=== PATIENT | female | born 2000 | race Two or more races ===

== ENCOUNTER 2022-03-17 14:04 | Emergency (ER) | payer MEDICAID ==
[~2022-03-17] VITALS: Ht 160 cm; Wt 59.0 kg
[2022-03-17] MEDS ORDERED: PREN-170 PO (14:21)
[2022-03-17] MEDS ORDERED: ONDANSETRON HCL 4MG/2ML INJ IV STA (15:37)
[2022-03-17] MEDS ORDERED: SODIUM CHLORIDE 0.9% 1,000 ML IV ONE (15:45)
[2022-03-17 16:25] LABS: BASOPHILS % 0.6 % (0.0-2.0); EOSINOPHILS % 1.2 % (0.0-5.0); HEMATOCRIT. 41.4 % (36.0-48.0); HEMOGLOBIN. 14.1 g/dL (12.0-16.0); LYMPHOCYTES % 21.5 % (20.0-50.0); MEAN CORPUSCULAR HEMOGLOBIN 29.3 pg (28.0-32.0); MEAN CORPUSCULAR VOLUME 85.9 fL (81.0-99.0); MEAN PLATELET VOLUME 7.1 fl (7.4-10.4); NEUTROPHILS % 71.7 % (40.0-76.0); PLATELET 288 x1000/uL (130-400); RED BLOOD CELL COUNT 4.82 mill/uL (4.2-5.4); RED CELL DISTRIBUTION WIDTH 13.1 % (11.6-14.6)
[2022-03-17 16:30] LABS: CHLORIDE 99 mEq/L (98-107)
[2022-03-17 16:37] LABS: BETA HYDROXYBUTYRATE 0.8 mMol/L (0.0-0.3)
[2022-03-17 17:44] LABS: CLARITY URINE CLOUDY (CLEAR); COLOR URINE DARK YELLOW (YELLOW); KETONES URINE 4+ (NEGATIVE); LEUKOCYTE ESTERASE URINE NEGATIVE (NEGATIVE); NITRITE URINE NEGATIVE (NEGATIVE); OCCULT BLOOD URINE NEGATIVE (NEGATIVE); PROTEIN URINE 1+ (NEGATIVE); SPECIFIC GRAVITY URINE 1.033 (1.005-1.030)
[2022-03-17] MEDS ORDERED: ONDANSETRON HCL 4MG/2ML INJ IV NR (17:45)
[2022-03-17] MEDS ORDERED: ONDA4TAB50 MT (19:00)
[2022-03-17] MEDS ORDERED: PYRI25TA4 MT (19:00)
[2022-03-17 19:13] VITALS: BP 116/76
== END 2022-03-17 19:16 | disposition home or self-care (01) ==
LOC: ER 14:17
DX: O21.8 Other vomiting complicating pregnancy (principal); Z3A.10 10 weeks gestation of pregnancy
CPT/HCPCS: 36415; 76815; 80053; 81003; 82010; 85025; 96361; 96374; 99283; J2405; J7030